=== PATIENT | male | born 1995 | race Two or more races ===

== ENCOUNTER 2023-11-03 10:42 | Emergency (ER) | payer SELFPAY ==
[~2023-11-03] VITALS: Ht 167.6 cm; Wt 79.5 kg
[2023-11-03 12:13] VITALS: BP 127/79; PULSE 74; RESP 18; TEMP 99.4; O2SAT 97
[2023-11-03] MEDS ORDERED: IBUP-1454 PO (12:27)
== END 2023-11-03 12:30 | disposition home or self-care (01) ==
LOC: ER 10:42
DX: S62.635A Displaced fracture of distal phalanx of left ring finger, initial encounter for closed fracture (principal); X50.1XXA Overexertion from prolonged static or awkward postures, initial encounter; Y93.89 Activity, other specified; Y92.89 Other specified places as the place of occurrence of the external cause; Y99.8 Other external cause status
CPT/HCPCS: 29130; 73130

== ENCOUNTER 2025-02-07 15:18 | Emergency (ER) | payer OTHER ==
[~2025-02-07] VITALS: Ht 170.2 cm; Wt 77.8 kg
[~2025-02-07 15:18] MED LIST: IBUP-1454 PO
--- NOTE | 2025-02-07 17:00 | ED.PDOC ---
GI ASSESSMENT HPI Comments This is a 29 year old male presenting to the ED with chief complaint of abdominal pain. Patient reports that he has been experiencing LLQ abdominal pain with associated diarrhea and nausea for the past 3 days. Patient relays that his pain radiates to his left lower back, but his abdominal pain has resolved as of now. Patient denies any vomiting, fever, chills, dysuria, or melena. Chief Complaint: Abdominal Pain Time Seen by MD: 15:30 Reviewed Notes: Nurses Notes, Medications, Allergies Allergies: Coded Allergies: NO KNOWN ALLERGIES (Unverified , 11/03/23) Home Meds Active Scripts Ibuprofen (Ibuprofen) 600 Mg Tab, 1 TAB PO TID, #30 TAB Prov:CHRYSTAL WEINSTEIN 11/03/23 Information Source: Patient Mode of Arrival: Ambulatory Timing: Days Duration: Since onset Prehospital treatment: None Quality: Aching Vomitus: None Stool: Watery Severity: Moderate Recent: None Recent Hx of: None Pain Location: LLQ Modifying Factors: Nothing Associated sign and symptoms: Nausea, Diarrhea, Abdominal Pain Past Medical History PAST MEDICAL HISTORY: Denies Surgical History: Denies all surgeries Family History Family History: Reviewed,noncontributory to illness Social History Smoker: Non-Smoker Alcohol: Denies ETOH Use Drugs: Denies Drug Use Lives In: Home Constitutional: denies: chills, diaphoresis, fatigue, fever, malaise, sweats, weakness, others EENTM: denies: blurred vision, double vision, ear bleeding, ear discharge, ear drainage, ear pain, ear ringing, eye pain, eye redness, hearing loss, mouth pain, mouth swelling, nasal discharge, nose bleeding, nose congestion, nose pain, photophobia, tearing, throat pain, throat swelling, voice changes, others Respiratory: denies: cough, hemoptysis, orthopnea, SOB at rest, shortness of breath, SOB with excertion, stridor, wheezing, others Cardiovascular: denies: chest pain, dizzy spells, diaphoresis, Dyspnea on exertion, edema, irregular heart beat, left arm pain, lightheadedness, palpitations, PND, syncope, others Gastrointestinal: reports: abdominal pain, diarrhea, nausea; denies: abdomen distended, blood streaked bowels, constipated, dysphagia, difficulty swallowing, hematemesis, melena, poor appetite, poor fluid intake, rectal bleeding, rectal pain, vomiting, others Genitourinary: denies: burning, dysuria, flank pain, frequency, hematuria, incontinence, penile discharge, penile sore, pain, testicle pain, testicle swelling, urgency, others Neurological: denies: dizziness, fainting, headache, left sided numbness, left sided weakness, numbness, paresthesia, pre-existing deficit, right sided numbness, right sided weakness, seizure, speech problems, tingling, tremors, weakness, others Musculoskeletal: reports: back pain; denies: gout, joint pain, joint swelling, muscle pain, muscle stiffness, neck pain, others Integumetry: denies: bruises, change in color, change in hair/nails, dryness, laceration, lesions, lumps, rash, wounds, others Allergic/Immunocompromised: denies: Difficulty Healing, Frequent Infections, Hives, Itching, others Hematologic/Lymphatic: denies: anemia, blood clots, easy bleeding, easy bruising, swollen glands, others Endocrine: denies: excessive hunger, excessive sweating, excessive thirst, excessive urination, flushing, intolerance to cold, intolerance to heat, unexplained weight gain, unexplained weight loss, others Psychiatric: denies: anxiety, bipolar disorder, depression, hopeless, panic disorder, schizophrenia, sleepless, suicidal, others All Other Systems: Reviewed and Negative Physical Exam General Appearance: No Apparent Distress, Normal HEENT: Normal ENT Inspection, Pharynx Normal, TMs Normal Neck: Full Range of Motion, Non-Tender, Normal, Normal Inspection Respiratory: Chest Non-Tender, Lungs Clear, No Accessory Muscle Use, No Respiratory Distress, Normal Breath Sounds Cardiovascular: No Edema, No JVD, No Murmur, No Gallop, Normal Peripheral Pulses, Regular Rate/Rhythm Breast Exam: Deferred Gastrointestinal: No Organomegaly, No Pulsatile Mass, Normal Bowel Sounds, Soft, Tenderness (LLQ) Genitalia: Deferred Pelvic: Deferred Rectal: Deferred Extremities: No calf tenderness, Normal capillary refill, Normal inspection, Normal range of motion, Non-tender, No pedal edema Musculoskeletal : Apperance: Normal Neurologic: Alert, financial aid administrator II-XII nml as Tested, No Motor Deficits, Normal Affect, Normal Mood, No Sensory Deficits Cerebellar Function: Normal Reflexes: Normal Skin: Dry, Normal Color, Warm Lymphatic: No Adenopathy Was a procedure done? Was a procedure done?: No GI differential Dx Differential Diagnosis: Gastritis/PUD, Gastroenteritis, Urolithiasis, Dehydration X-Ray, Labs, Meds, VS Vital Signs Date Time Temp Pulse Resp B/P (MAP) Pulse Ox O2 Delivery O2 Flow Rate FiO2 02/07/25 15:21 98.1 64 18 136/91 96 98.1 Lab Test 02/07/25 16:46 02/07/25 15:29 Range/Units White Blood Count 11.2 H 4.4-10.8 10^3/uL Red Blood Count 5.62 4.5-5.90 10^6/uL Hemoglobin 17.0 13.5-17.5 g/dL Hematocrit 50.0 41.0-53.0 % Mean Corpuscular Volume 89.1 80.0-100.0 fL Mean Corpuscular Hemoglobin 30.3 28.0-32.0 pg Mean Corpuscular Hemoglobin Concent 34.1 32.0-36.0 g/dL Red Cell Distribution Width 13.7 11.8-14.3 % Platelet Count 375 140-450 10^3/uL Mean Platelet Volume 7.4 6.9-10.8 fL Neutrophils (%) (Auto) 59.8 37.0-80.0 % Lymphocytes (%) (Auto) 22.3 10.0-50.0 % Monocytes (%) (Auto) 12.6 H 0.0-12.0 % Eosinophils (%) (Auto) 4.8 0.0-7.0 % Basophils (%) (Auto) 0.5 0.0-2.0 % Neutrophils # (Auto) 6.7 1.6-8.6 10 ^3/uL Lymphocytes # (Auto) 2.5 0.4-5.4 10 ^3/uL Monocytes # (Auto) 1.4 H 0-1.3 10 ^3/uL Eosinophils # (Auto) 0.5 0-0.8 10 ^3/uL Basophils # (Auto) 0.1 0-0.2 10 ^3/uL Nucleated Red Blood Cells 0.1 % Sodium Level 139 136-145 mmol/L Potassium Level 4.2 3.5-5.1 mmol/L Chloride Level 104 98-107 mmol/L Carbon Dioxide Level 26 20-31 mmol/L Anion Gap 9 5-15 Blood Urea Nitrogen < 5 L 9-23 mg/dL Creatinine 0.90 0.700-1.30 mg/dL Glomerular Filtration Rate Calc 119 >90 mL/min BUN/Creatinine Ratio 5.6 L 10.0-20.0 Serum Glucose 96 74-106 mg/dL Calcium Level 9.7 8.7-10.4 mg/dL Urine Color Yellow Yellow Urine Clarity Clear Clear Urine pH 6.0 5.0-9.0 Urine Specific [place] 1.018 1.001-1.035 Urine Protein Negative Negative Urine Ketones 3+ H Negative Urine Blood 1+ H Negative /uL Urine Nitrite Negative Negative Urine Bilirubin Negative Negative Urine Urobilinogen Normal Negative mg/dL Urine Leukocyte Esterase Negative Negative /uL Urine RBC 1 0 - 3 /hpf Urine Microscopic WBC 1 0-3 /HPF Urine Squamous Epithelial Cells Few <5 /hpf Urine Bacteria None seen None Seen /hpf Urine Mucus Few None Seen Urine Glucose Normal Normal mg/dL Time of 1ST Reevaluation: 16:30 Reevaluation 1ST: Unchanged Patient Education/Counseling: Diagnosis, Treatment Family Education/Counseling: No Family Present SEPSIS Sepsis Screen Date sepsis recognized/suspect: Feb 07, 2025 Time Sepsis recognized/suspect: 1521 Recent Procedure: No On Antibiotic Therapy: No Respiratory Rate >20: No Heart Rate >90: No Temp<36 C (96.8 F) or >38.3 C: No SBP <90 or MAP <65 mmHG: No New Acute Mental Status Change: No Is the patient on CPAP, BIPAP,: No Vital Signs Date Time Temp Pulse Resp B/P (MAP) Pulse Ox O2 Delivery O2 Flow Rate FiO2 02/07/25 15:21 98.1 64 18 136/91 96 98.1 Laboratory Tests Test 02/07/25 16:46 White Blood Count 11.2 10^3/uL (4.4-10.8) H Departure 1 Departure Time of Disposition: 18:55 (Patient likely with gastroenteritis. We will discharge patient home with outpatient follow up) Impression: Primary Impression: Acute gastroenteritis Disposition: 01 HOME / SELF CARE / HOMELESS Condition: Stable Additional Instructions: You likely have gastroenteritis. It is important to stay well hydrated and well rested. This usually resolves within 1 week. If your symptoms worsen or you have any other concerns please return to the ER. Discharged With: Self Critical Care Note Critical Care Time?: No Stability Stability form required: No Heart Score Heart Score: Heart Score Response (Comments) Value History N/A 0 EKG N/A 0 Age N/A 0 Risk Factors N/A 0 Troponin N/A 0 Total 0 I personally scribed for YOLANDE PADILLA MD ([email or web address]) on 02/07/25 at 17:00. Electronically submitted by Abdias Boateng ([email or web address]). YOLANDE PADILLA MD Feb 07, 2025 17:00
[2025-02-07 17:02] LABS: Hematocrit 50.0 % (41.0-53.0); Hemoglobin 17.0 g/dL (13.5-17.5); Mean Corpuscular Hemoglobin 30.3 pg (28.0-32.0); Mean Corpuscular Volume 89.1 fL (80.0-100.0); Nucleated Red Blood Cells % 0.1 %
[2025-02-07 17:12] LABS: Chloride 104 mmol/L (98-107); Potassium 4.2 mmol/L (3.5-5.1); Sodium 139 mmol/L (136-145)
[2025-02-07 17:13] LABS: Anion Gap 9 (5-15); Carbon Dioxide 26 mmol/L (20-31)
[2025-02-07 17:14] LABS: Calcium 9.7 mg/dL (8.7-10.4)
[2025-02-07 17:18] LABS: Glucose 96 mg/dL (74-106)
[2025-02-07 17:19] LABS: BUN/Creatinine Ratio 5.6 (10.0-20.0); Blood Urea Nitrogen < 5 mg/dL (9-23)
[2025-02-07 18:40] LABS: Urine Protein, UAD Negative (Negative)
[2025-02-07] MEDS ORDERED: ACETAMINOPHEN 325 MG TAB PO ONE (19:00)
[2025-02-07] MEDS ORDERED: FAMOTIDINE 20 MG TAB PO ONE (19:00)
[2025-02-07] MEDS ORDERED: ONDANSETRON ODT 4 MG TAB PO ONE (19:00)
[2025-02-07 20:03] VITALS: BP 118/63; PULSE 87; RESP 18; TEMP 98.1; O2SAT 97
== END 2025-02-07 20:05 | disposition home or self-care (01) ==
LOC: ER 15:18
DX: K52.9 Noninfective gastroenteritis and colitis, unspecified (principal)
CPT/HCPCS: 36415; 80048; 81001; 85025

== ENCOUNTER 2025-02-14 17:20 | Emergency (ER) | payer OTHER ==
[~2025-02-14] VITALS: Ht 170.2 cm; Wt 72.2 kg
--- NOTE | 2025-02-14 18:04 | ED.PDOC ---
GI ASSESSMENT HPI Comments 29 y/o M, with PMHx of gastroenteritis presents to the ED for CC of nausea and vomiting. Patient states, that he has been having nausea and vomiting x1week. Patient reports, that he was recently diagnosed with gastroenteritis last week and has since, been unable to keep anything down x7days. Patient relays further, symptoms of loose bowel movements. Patient denies hematemesis, hematochezia, chills, fatigue, or weakness. No other symptoms or modifying factors are present at this time. Vital signs were stable. Chief Complaint: Nausea/Vomiting Time Seen by MD: 17:55 Reviewed Notes: Nurses Notes, Medications, Allergies Allergies: Coded Allergies: NO KNOWN ALLERGIES (Unverified , 11/03/23) Home Meds Active Scripts Ibuprofen (Ibuprofen) 600 Mg Tab, 1 TAB PO TID, #30 TAB Prov:CHRYSTAL WEINSTEIN 11/03/23 Information Source: Patient Mode of Arrival: Ambulatory Timing: Weeks Duration: Since onset Prehospital treatment: None Quality: None Vomitus: Watery Stool: Watery Severity: Moderate Recent: None Recent Hx of: None Pain Location: None Modifying Factors: Nothing Associated sign and symptoms: Nausea, Vomiting, Diarrhea, Abdominal Pain Past Medical History PAST MEDICAL HISTORY: Denies Surgical History: Denies all surgeries Family History Family History: Reviewed,noncontributory to illness Social History Smoker: Non-Smoker Alcohol: Denies ETOH Use Drugs: Denies Drug Use Lives In: Home Constitutional: reports: fatigue; denies: chills, diaphoresis, fever, malaise, sweats, weakness, others EENTM: denies: blurred vision, double vision, ear bleeding, ear discharge, ear drainage, ear pain, ear ringing, eye pain, eye redness, hearing loss, mouth pain, mouth swelling, nasal discharge, nose bleeding, nose congestion, nose pain, photophobia, tearing, throat pain, throat swelling, voice changes, others Respiratory: denies: cough, hemoptysis, orthopnea, SOB at rest, shortness of breath, SOB with excertion, stridor, wheezing, others Cardiovascular: denies: chest pain, dizzy spells, diaphoresis, Dyspnea on exertion, edema, irregular heart beat, left arm pain, lightheadedness, palpitations, PND, syncope, others Gastrointestinal: reports: abdominal pain, diarrhea, nausea, vomiting; denies: abdomen distended, blood streaked bowels, constipated, dysphagia, difficulty swallowing, hematemesis, melena, poor appetite, poor fluid intake, rectal bleeding, rectal pain, others Genitourinary: denies: burning, dysuria, flank pain, frequency, hematuria, incontinence, penile discharge, penile sore, pain, testicle pain, testicle swelling, urgency, others Neurological: denies: dizziness, fainting, headache, left sided numbness, left sided weakness, numbness, paresthesia, pre-existing deficit, right sided numbness, right sided weakness, seizure, speech problems, tingling, tremors, weakness, others Musculoskeletal: denies: back pain, gout, joint pain, joint swelling, muscle pain, muscle stiffness, neck pain, others Integumetry: denies: bruises, change in color, change in hair/nails, dryness, laceration, lesions, lumps, rash, wounds, others Allergic/Immunocompromised: denies: Difficulty Healing, Frequent Infections, Hives, Itching, others Hematologic/Lymphatic: denies: anemia, blood clots, easy bleeding, easy bruising, swollen glands, others Endocrine: denies: excessive hunger, excessive sweating, excessive thirst, excessive urination, flushing, intolerance to cold, intolerance to heat, unexplained weight gain, unexplained weight loss, others Psychiatric: denies: anxiety, bipolar disorder, depression, hopeless, panic disorder, schizophrenia, sleepless, suicidal, others All Other Systems: Reviewed and Negative Physical Exam General Appearance: Moderate Distress (Patient was in mild to moderate distress due to general ill feeling. Patient looks [id number] toxic.), Normal HEENT: Normal ENT Inspection, Pharynx Normal, TMs Normal Neck: Full Range of Motion, Non-Tender, Normal, Normal Inspection Respiratory: Chest Non-Tender, Lungs Clear, No Accessory Muscle Use, No Respiratory Distress, Normal Breath Sounds Cardiovascular: No Edema, No JVD, No Murmur, No Gallop, Normal Peripheral Pulses, Regular Rate/Rhythm Breast Exam: Deferred Gastrointestinal: Other (Diffuse nonspecific epigastric tenderness to palpation extending into the periumbilical region. Abdomen was reasonably soft.) Genitalia: Deferred Pelvic: Deferred Rectal: Deferred Extremities: No calf tenderness, Normal capillary refill, Normal inspection, Normal range of motion, Non-tender, No pedal edema Neurologic: Alert, No Motor Deficits, Normal Affect, Normal Mood, No Sensory Deficits Cerebellar Function: NOT DONE Reflexes: NOT DONE Skin: Dry, Normal Color, Warm Lymphatic: No Adenopathy Was a procedure done? Was a procedure done?: No GI differential Dx Differential Diagnosis: Gastritis/PUD, Gastroenteritis, Bacterial, Viral, Other (Electrolyte abnormality, sepsis) X-Ray, Labs, Meds, VS Vital Signs Date Time Temp Pulse Resp B/P (MAP) Pulse Ox O2 Delivery O2 Flow Rate FiO2 02/14/25 19:28 98.1 126 19 128/86 (100) 98 98.1 02/14/25 17:28 97.7 114 12 131/89 97 97.7 Lab Test 02/14/25 17:56 Range/Units White Blood Count 10.1 4.4-10.8 10^3/uL Red Blood Count 6.57 H 4.5-5.90 10^6/uL Hemoglobin 20.4 H 13.5-17.5 g/dL Hematocrit 56.4 H 41.0-53.0 % Mean Corpuscular Volume 85.9 80.0-100.0 fL Mean Corpuscular Hemoglobin 31.1 28.0-32.0 pg Mean Corpuscular Hemoglobin Concent 36.2 H 32.0-36.0 g/dL Red Cell Distribution Width 13.4 11.8-14.3 % Platelet Count 466 H 140-450 10^3/uL Mean Platelet Volume 7.6 6.9-10.8 fL Neutrophils (%) (Auto) 37.0-80.0 % Lymphocytes (%) (Auto) 10.0-50.0 % Monocytes (%) (Auto) 0.0-12.0 % Basophils (%) (Auto) 0.0-2.0 % Neutrophils # (Auto) 1.6-8.6 10 ^3/uL Lymphocytes # (Auto) 0.4-5.4 10 ^3/uL Monocytes # (Auto) 0-1.3 10 ^3/uL Differential Total Cells Counted 100.0 100 Neutrophils % (Manual) 54 37.0-80.0 Band Neutrophils % (Manual) 9 Lymphocytes % (Manual) 16 10.0-50.0 Monocytes % (Manual) 15 H 0-12 Eosinophils % (Manual) 6 0-7 Basophils % (Manual) 0 0.0-2.0 Metamyelocytes % (manual) 0 Myelocytes % (Manual) 0 Promyelocytes % (Manual) 0 Blast Cells % (Manual) 0 Reactive Lymphocytes 0 Platelet Estimate Increased Red Blood Cell Morphology Normal Sodium Level 132 L 136-145 mmol/L Potassium Level 3.5 3.5-5.1 mmol/L Chloride Level 91 L 98-107 mmol/L Carbon Dioxide Level 28 20-31 mmol/L Anion Gap 13 5-15 Blood Urea Nitrogen 6 L 9-23 mg/dL Creatinine 1.02 0.700-1.30 mg/dL Glomerular Filtration Rate Calc 102 >90 mL/min BUN/Creatinine Ratio 5.9 L 10.0-20.0 Serum Glucose 137 H 74-106 mg/dL Calcium Level 10.3 8.7-10.4 mg/dL Current Medications Medications (Trade) Dose Ordered Sig/Cherie Route Start Time Stop Time Status Last Admin Ondansetron HCl (Zofran Po) 4 mg ONCE ONCE PO 02/14/25 17:45 02/14/25 17:46 DC 02/14/25 19:28 X-Ray, Labs, Meds, VS Comment All studies performed the ED were evaluated by me personally. Serum laboratories remarkable for a polycythemia state. No sepsis noted. Patient may be suffering from a viral gastroenteritis, but I will advise a follow up with the primary care provider for lab redraw in the next few weeks to confirm the p olycythemia state. Time of 1ST Reevaluation: 19:41 Reevaluation 1ST: Improved Consultation: PCP Patient Education/Counseling: Diagnosis, Treatment Family Education/Counseling: Diagnosis, Treatment, No Family Present SEPSIS Sepsis Screen Date sepsis recognized/suspect: Feb 14, 2025 Time Sepsis recognized/suspect: 1727 Recent Procedure: No On Antibiotic Therapy: No Respiratory Rate >20: No Heart Rate >90: Yes Temp<36 C (96.8 F) or >38.3 C: No SBP <90 or MAP <65 mmHG: No New Acute Mental Status Change: No Is the patient on CPAP, BIPAP,: No Vital Signs Date Time Temp Pulse Resp B/P (MAP) Pulse Ox O2 Delivery O2 Flow Rate FiO2 02/14/25 19:28 98.1 126 19 128/86 (100) 98 98.1 02/14/25 17:28 97.7 114 12 131/89 97 97.7 Laboratory Tests Test 02/14/25 17:56 White Blood Count 10.1 10^3/uL (4.4-10.8) Medications Medications Dose Ordered Sig/Cherie Route Start Time Stop Time Status Last Admin Dose Admin Ondansetron HCl 4 mg ONCE ONCE PO 02/14/25 17:45 02/14/25 17:46 DC 02/14/25 19:28 Departure 1 Departure Time of Disposition: 19:41 Impression: Primary Impression: Viral gastroenteritis Additional Impression: Polycythemia Disposition: 01 HOME / SELF CARE / HOMELESS Condition: Stable Additional Instructions: Advise utilizing medication as needed for symptomatic relief in additionally, patient should follow up with the primary care provider for discussions related to today's laboratory results and possible hematology referral. e-Prescriptions Ondansetron Odt 4MG Tab (ZOFRAN PO) 4 Mg Tb 4 MG PO Q6HP PRN, #20 TAB ODT TAB-DISSOLVE IN MOUTH, THEN SWALLOW Prov: LIN SHELDON PAC 02/14/25 Dicyclomine Hcl (BENTYL CAPSULE) 10 Mg Cp 1 CAP PO Q6HPRN, #20 CAP 0 Refills Prov: LIN SHELDON PAC 02/14/25 Discharged With: Self, Relative (Mother) Critical Care Note Critical Care Time?: No Stability Stability form required: No Heart Score Heart Score: Heart Score Response (Comments) Value History N/A 0 EKG N/A 0 Age N/A 0 Risk Factors N/A 0 Troponin N/A 0 Total 0 I personally scribed for LIN SHELDON PAC ([email or web address]) on 02/14/25 at 18:04. Electronically submitted by Elvira Peoples ([email or web address]). LIN SHELDON PAC Feb 14, 2025 18:04
[2025-02-14 18:23] LABS: Hematocrit 56.4 % (41.0-53.0); Hemoglobin 20.4 g/dL (13.5-17.5); Mean Corpuscular Hemoglobin 31.1 pg (28.0-32.0); Mean Corpuscular Volume 85.9 fL (80.0-100.0)
[2025-02-14 18:29] LABS: Potassium 3.5 mmol/L (3.5-5.1)
[2025-02-14 18:30] LABS: Anion Gap 13 (5-15); Carbon Dioxide 28 mmol/L (20-31)
[2025-02-14 18:31] LABS: Calcium 10.3 mg/dL (8.7-10.4); Chloride 91 mmol/L (98-107); Sodium 132 mmol/L (136-145)
[2025-02-14 18:36] LABS: BUN/Creatinine Ratio 5.9 (10.0-20.0)
[2025-02-14 18:38] LABS: Blood Urea Nitrogen 6 mg/dL (9-23); Glucose 137 mg/dL (74-106)
[2025-02-14 18:52] LABS: Total Cells Counted 100.0 (100)
[2025-02-14 18:53] LABS: RBC Morphology Normal
[2025-02-14 19:28] VITALS: BP 128/86; PULSE 126; RESP 19; TEMP 98.1; O2SAT 98
[2025-02-14] MEDS: ONDANSETRON ODT 4 MG TAB PO ONE (19:28)
[2025-02-14] MEDS ORDERED: ZOFR4T PO (19:43)
[2025-02-14] MEDS ORDERED: DICY10CA PO (19:43)
== END 2025-02-14 20:27 | disposition home or self-care (01) ==
LOC: ER 17:23
DX: A08.4 Viral intestinal infection, unspecified (principal); D75.1 Secondary polycythemia; Z79.1 Long term (current) use of non-steroidal anti-inflammatories (NSAID)
CPT/HCPCS: 36415; 80048; 85007; 85027; 99283; Q0162